=== PATIENT | male | born 1930 | race Caucasian/White ===

== ENCOUNTER 2017-04-01 05:21 | Emergency (ER) | payer OTHER ==
[~2017-04-01] VITALS: Ht 182.9 cm; Wt 90.7 kg
--- NOTE | ~2017-04-01 | EKG ---
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 : 1930 Requested By: Corbin Rene Order Number: [id number] MD: Hakeem Howell Measurements Intervals [place] Rate: 87 P: 33 AK: 244 QRS: -40 QRSD: 95 T: 52 QT: 366 QTc: 441 Interpretive Statements Sinus rhythm Prolonged AK interval Left anterior fascicular block Baseline wander in lead(s) V4 No previous ECG available for comparison Electronically Signed On 04-01-2017 10:54:05 CDT by Hakeem Howell [email or web address] <ELECTRONICALLY SIGNED> By: Hakeem Howell MD, [facility] 04/01/17 1054 0532 0532 Hakeem Howell MD, FACC /EPI
[~2017-04-01 05:21] MED LIST: FLOMAX PO; KEFLEX500 MG PO
[2017-04-01] MEDS ORDERED: [UNRECOGNIZED DRUG - OTHER] PO (05:28)
[2017-04-01 05:47] LABS: URINE BILIRUBIN NEGATIVE (Negative); URINE BLOOD TRACE (Negative); URINE COLOR YELLOW; URINE GLUCOSE-RANDOM* NEGATIVE (Negative); URINE KETONES TRACE (Negative); URINE LEUKOCYTES-REFLEX NEGATIVE (Negative); URINE PROTEIN (DIPSTICK) NEGATIVE (Negative); URINE SPECIFIC GRAVITY <= 1.005 (1.003-1.035); URINE UROBILINOGEN 0.2 E.U./dl (0.2-1.0)
[2017-04-01 05:48] LABS: ABSOLUTE NEUTROPHILS 5.7 thou/uL (1.4-8.2); EOSINOPHILS 1.5 % (0.0-3.0); HEMOGLOBIN 14.7 gm/dL (14.0-18.0); LYMPHOCYTES 13.3 % (24.0-44.0); MCH 32.5 pg (26.0-34.0); MCHC 33.5 g/dL (28.0-37.0); MCV 97.1 fL (80.0-100.0); MONOCYTES 9.5 % (1.0-8.0); PLATELET COUNT 163 thou/uL (150-400); POLYS 74.7 % (36.0-66.0); RBC 4.53 mil/uL (4.50-6.00); RDW 14.1 % (10.5-14.5); WBC 7.6 thou/uL (4.0-11.0)
[2017-04-01 05:52] LABS: MANUAL DIFF NO
[2017-04-01 06:00] LABS: ANION GAP 9 mmol/L (7-16); BUN 27 mg/dL (7-18); CALCIUM 9.1 mg/dL (8.5-10.1); CHLORIDE 103 mmol/L (98-107); CO2 28 mmol/L (21-32); CREATININE 1.4 mg/dL (0.7-1.3); GLUCOSE 103 mg/dL (74-106); POTASSIUM 3.9 mmol/L (3.5-5.1); SODIUM 140 mmol/L (136-145)
[2017-04-01 06:08] LABS: ALBUMIN 3.7 g/dL (3.4-5.0); ALKALINE PHOSPHATASE 47 U/L (46-116); MAGNESIUM 1.8 mg/dL (1.8-2.4); SGOT 19 U/L (15-37); SGPT 22 U/L (30-65); TOTAL BILIRUBIN 1.3 mg/dL (<0.1-1.0); TOTAL PROTEIN 6.7 g/dL (6.4-8.2); TROPONIN-I < 0.04 ng/mL (<0.04-0.07)
[2017-04-01 06:21] LABS: CK-MB MASS 2.4 ng/mL (<0.5-3.6)
[2017-04-01 06:51] VITALS: BP 129/72
== END 2017-04-01 06:20 | disposition home or self-care (01) ==
LOC: ER 05:21
PROVIDERS: Emergency Medicine
DX: E86.0 Dehydration (principal)

== ENCOUNTER → 2017-08-27 | Outpatient (CLI) | payer OTHER ==
[~2017-08-27] MED LIST changes: +ASPIR 8181 MG PO; +ATORVASTATIN CA80 MG PO; +AVODART0.5 MG PO; +BRILINTA90 MG PO; +FLOMAX0.4 MG PO; +TOPROL XL25 MG PO; +[UNRECOGNIZED DRUG - OTHER] PO
--- NOTE | ~2017-08-27 | 2DMMODE ---
[facility] [place] [address] 2 D/M-MODE ECHOCARDIOGRAM Name: AGUSTINA SUBRAMANIAN [facility] [id number] Admission: 08/27/17 Attend Phys: Kieran Clemens Discharge: Date of : [birth year]/17/[birth year] Date of Service: 08/27/17 1518 Report #: [id number] THIS REPORT FOR: //name// APPROVED REPORT Study performed: 08/27/2017 14:10:33 EXAM: Comprehensive 2D, Doppler, and color-flow Echocardiogram Patient Location: Out-Patient Room #: Echo lab Status: routine BSA: 2.18 HR: 64 bpm BP: 136/78 mmHg Other Information Study Quality: Adequate Indications Syncope 2D Dimensions RVDd: 35.42 mm LVEF(%): 68.81 (>50%) IVSd: 12.35 (7-11mm) LVOT Diam: 22.01 (18-24mm) LVDd: 37.71 mm PWd: 12.47 (7-11mm) Ascending Ao: 38.35 (22-36mm) LVDs: 23.43 (25-40mm) Aortic Root: 36.11 mm IVC: 18.00 mm Faria's LVEF: 68.81 % Volumes Left Atrial Volume (Systole) Single Plane 4CH: 43.73 mL Single Plane 2CH: 34.06 mL LA ESV Index: 21.00 mL/m2 Aortic Valve AoV Peak Bartolo.: 1.16 m/s AO Peak Gr.: 5.41 mmHg LVOT Max P.08 mmHg LVOT Max V: 0.88 m/s ROBERTA Vmax: 2.87 cm2 Mitral Valve E/A Ratio: 0.8 MV Decel. Time: 242.36 ms MV E Max Bartolo.: 0.80 m/s [facility] [place] [address] 2 D/M-MODE ECHOCARDIOGRAM Name: AGUSTINA SUBRAMANIAN Room #: [facility] Ulloa#: [id number] Admission: 08/27/17 Attend Phys: Kieran Clemens Discharge: Date of : [birth year] Date of Service: 08/27/17 1518 Report #: [id number] MV A Bartolo.: 0.97 m/s MV PHT: 70.28 ms IVRT: 161.48 ms Pulmonary Valve PV Peak Bartolo.: 0.82 m/s PV Peak Gr.: 2.70 mmHg IL End Vmax: 1.28 m/s Pulmonary Vein P Vein S: 0.63 m/s P Vein A: 0.22 m/s P Vein D: 0.39 m/s P Vein A Dur.: 115.3 msec P Vein S/D Ratio: 1.62 Tricuspid Valve TR Peak Bartolo.: 2.51 m/s TR Peak Gr.: 25.16 mmHg PA Pressure: 30.00 mmHg Left Ventricle The left ventricle is normal size. There is normal left ventricular wall thickness. The left ventricular systolic function is normal. The left ventricular ejection fraction is within the normal range. LVEF is 60-65%. Grade I - abnormal relaxation pattern. Right Ventricle The right ventricle is normal size. The right ventricular systolic function is normal. Atria The left atrium size is normal. The right atrium size is normal. Aortic Valve The aortic valve is normal in structure. Aortic valve is calcified. No aortic regurgitation is present. There is no aortic valvular stenosis. Mitral Valve The mitral valve is normal in structure. Trace to mild mitral regurgitation. Tricuspid Valve The tricuspid valve is normal in structure. There is mild tricuspid regurgitation. Estimated PAP 30 mmHg. There is no pulmonary hypertension. [address] [address] 2 D/M-MODE ECHOCARDIOGRAM Name: AGUSTINA SUBRAMANIAN Room #: REG CL Artemio#: [id number] Admission: 08/27/17 Attend Phys: Kieran [facility] northnnjohnathan Discharge: Date of : 11/17/29 Date of Service: 08/27/17 1518 Report #: [id number] Pulmonic Valve The pulmonary valve is normal in structure. Trace pulmonic regurgitation. Great Vessels Aortic root is mildly dilated. The ascending aorta is mildly dilated. IVC is normal in size and collapses >50% with inspiration. Pericardium There is no pericardial effusion. <Conclusion> The left ventricle is normal size. LVEF is 60-65%. Grade I - abnormal relaxation pattern. The right ventricle is normal size. The left atrium size is normal. The aortic valve is normal in structure. Aortic valve is calcified. Trace to mild mitral regurgitation. There is mild tricuspid regurgitation. Estimated PAP 30 mmHg. There is no pulmonary hypertension. Aortic root is mildly dilated. There is no pericardial effusion. <ELECTRONICALLY SIGNED> By: Cooper Calvo MD, FACC 08/27/17 1518 1518 1518 Cooper Calvo MD, FACC /INF
== END ==
LOC: CV 09:04
DX: I08.1 Rheumatic disorders of both mitral and tricuspid valves (principal); I70.0 Atherosclerosis of aorta

== ENCOUNTER → 2017-08-29 | Outpatient (CLI) | payer OTHER ==
[2017-08-29 09:02] LABS: CREATININE 1.2 mg/dL (0.7-1.3)
== END ==
LOC: CAT 08:23
PROVIDERS: Internal Medicine
DX: I72.8 Aneurysm of other specified arteries (principal); R30.9 Painful micturition, unspecified; J98.4 Other disorders of lung; M47.895 Other spondylosis, thoracolumbar region; M16.4 Bilateral post-traumatic osteoarthritis of hip; M53.3 Sacrococcygeal disorders, not elsewhere classified; N28.1 Cyst of kidney, acquired; N20.0 Calculus of kidney; N40.0 Benign prostatic hyperplasia without lower urinary tract symptoms; N32.89 Other specified disorders of bladder; N32.3 Diverticulum of bladder; N21.0 Calculus in bladder; K57.30 Diverticulosis of large intestine without perforation or abscess without bleeding

== ENCOUNTER 2018-03-24 23:30 | Emergency (ER) | payer OTHER ==
[~2018-03-24] VITALS: Ht 182.9 cm; Wt 90.7 kg
== END 2018-03-25 00:29 | disposition home or self-care (01) ==
LOC: ER 23:30
DX: S70.11XA Contusion of right thigh, initial encounter (principal); N40.0 Benign prostatic hyperplasia without lower urinary tract symptoms; Z95.5 Presence of coronary angioplasty implant and graft; X58.XXXA Exposure to other specified factors, initial encounter; Y92.89 Other specified places as the place of occurrence of the external cause; Y93.89 Activity, other specified; Y99.8 Other external cause status

== ENCOUNTER 2018-04-02 09:25 | Observation (INO) | payer OTHER ==
[~2018-04-02] VITALS: Ht 182.9 cm; Wt 92.5 kg
[2018-04-02] VITALS (12 sets, daily range): BP systolic 121–149; BP diastolic 77–99
--- NOTE | ~2018-04-02 | D ---
[facility] [place] [address] DISCHARGE SUMMARY Name: AGUSTINA SUBRAMANIAN Room #: 201-P [facility] Shiv Ulloa#: [id number] Admission: 04/02/18 Attend Phys: Niels Gonzales MD Discharge: 04/03/18 Date of : [birth year] Report #: [id number] THIS REPORT FOR: //name// CC: Dieudonne Alcaraz [facility] DATE OF SERVICE: 04/03/2018 FINAL DIAGNOSES: 1. Unstable angina, status post coronary angioplasty. 2. Recent inferior wall myocardial infarction. 3. Orthostatic hypotension. 4. Paroxysmal supraventricular tachycardia. 5. Benign prostatic hypertrophy. HOSPITAL COURSE: Please see the original H and P for full details. The patient presents with his anginal equivalent, lightheadedness and weakness with exertion. He initially presented with these symptoms and was diagnosed with an acute inferior wall AL, undergoing stent placement. Even after his angioplasty procedure, he had recurrent symptoms and presented for an elective staged angioplasty procedure involving the LAD. The LAD has a superior occlusion in the mid segment. He underwent placement of 2 overlapping drug-eluting stents into the mid LAD segment. He has remained hemodynamically stable overnight. He denies any episodes of lightheadedness or weakness. He is instructed to continue with the combination of aspirin and Brilinta. FINAL DISPOSITION: He will continue with Avodart, Toprol-XL 25 mg daily, Flomax, Brilinta 90 mg b.i.d., Lipitor 40 mg and aspirin 81 mg. He is given followup appointment in the office. <ELECTRONICALLY SIGNED> By: Niels Gonzales MD 04/06/18 08 08 09 Niels Gonzales MD /nt
--- NOTE | ~2018-04-02 | EKG ---
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 04/03/18 0858 5 5 Hakeem Howell MD, [facility] /EPI
--- NOTE | ~2018-04-02 | EKG ---
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 CARRASCO : 1930 Requested By: Niels Gonzales Order Number: [id number] MD: Hakeem Howell Measurements Intervals [place] Rate: 62 P: -31 IA: 277 QRS: -48 QRSD: 100 T: -16 QT: 407 QTc: 414 Interpretive Statements Sinus rhythm Atrial premature complex Prolonged IA interval Left anterior fascicular block Borderline T abnormalities, inferior leads Compared to ECG 03/22/2018 07:50:34 Atrial premature complex(es) now present Electronically Signed On 04-03-2018 8:51:27 CDT by Hakeem Howell [email or web address] <ELECTRONICALLY SIGNED> By: Hakeem Howell MD, [facility] 04/03/18 0851 1619 1619 Hakeem Howell MD, [facility] /EPI
--- NOTE | ~2018-04-02 | CATHLAB ---
[facility] [place] [address] INVASIVE PROCEDURE REPORT Name: AGUSTINA SUBRAMANIAN Room #: 201-P ADM IN ..#: [id number] Admission: 04/02/18 Attend Phys: Niels Gonzales MD Discharge: Date of : [birth year] Date of Service: 04/02/18 1656 Report #: [id number] THIS REPORT FOR: //name// APPROVED REPORT Study performed: 04/02/2018 10:17:16 Patient Details Patient Status: Out-Patient Room #: The patient is a 87 year-old male Event Personnel Niels Gonzales Emu Farm Worker, Maik Gomes RN, Shena Churchill [place], Nancy RTR, MILLING/POLISHING OPERATOR Monitor, Nadeen Crowe Monitor Procedures Performed Art Access - L radial artery Art Access - L femoral artery* Coronary Angiography Only 3069199 CORANG CLEMENT Place w/wo Plasty Single LAD 306848 Hemostasis w/ Mynx Hemostasis with Hemoband 15345 Initial Mod Sed Same Phys/QHP Gr5y 886644 95704 Mod Sed Same Phys/QHP Ea 992071 Indication Dizziness and vertigo, Chest pain, Anginal equivalent is lightheadedness and weakness with exertion. Risk Factors Hypercholesterolemia, Coronary Artery DiseaseHypertension Previous Procedures/Diagnoses Previous PCI, Previous NH Procedure Narrative The patient was brought electively to the Cardiac Catheterization Laboratory and was prepped and draped in a sterile manner. The left femoral was infiltrated with 1% Lidocaine subcutaneous anesthesia. A PINNACLE 6FR Sheath #[id number] sheath was inserted into the LFA. Coronary angiography was performed using coronary diagnostic catheters. The right coronary system was accessed and visualized with a 5FR JR 4 #[id number] catheter. The left coronary system was accessed and visualized with a VISTA 6FR JL4 #[id number] catheter. Pre-demployment femoral angiogram was performed . Closure device was deployed with a 6 Fr MYNXGRIP 6/7F #[id number]. The patient tolerated the procedure well and there were no complications associated with the procedure. There was no hematoma. [address] [address] INVASIVE PROCEDURE REPORT Name: AGUSTINA SUBRAMANIAN CYNDY Room #: 201-P [facility]#: [id number] Admission: 04/02/18 Attend Phys: Niels Gonzales MD Discharge: Date of : [birth year]/17/[birth year] Date of Service: 04/02/18 1656 Report #: [id number] Intraoperative Conscious Sedation Sedation start time: 12:01 Case end Time: 13:30 Versed 2 mg Fluoro Time: 16.46 minutes Dose: DAP 94306.10 cGycm2 1920 mGy Contrast Type and Amount: 180ML VISI Coronary Angiography The patient's coronary anatomy is right dominant. Diagnostic Cath LAD There is severe diffuse disease in the midsegment of the LAD. Hemodynamics The aortic pressure is 79/49 mmHg with a mean of 63 mmHg. PCI Technique Lesion Anticoagulation was achieved with Angiomax. Patient was preloaded with Brillinta. Percutaneous coronary intervention was performed on the mid left anterior descending artery segment. The lesion stenosis prior to intervention was 90% with AURORA 3 flow. A VISTA 6FR JL4 #[id number] Guide Catheter was used to engage the LCA ostium. A Luge Wire .014 x 182CM #[id number] Interventional Guidewire was used to cross the lesion. BALLOON DILATION A Balloon catheter Euphora RX 2.0 x 20 #[id number] was inserted and inflated up to 16.00atm for 26seconds. Additional Inflation: 16.00atm for 12seconds. Additional Inflation: 10.00atm for 16seconds. STENT DEPLOYMENT A drug-eluting stent RESOLUTE HANNA RX 2.0 X 22 # was inserted and inflated up to 14.00atm for 29seconds. 2.75X14 RESOLUTE STENT DEPLOYED PROX. TO THE HANNA STENT @9ATM FOR 20 SEC., POST DILATED WITH RESOLUTE STENT DELIVERY SYSTEM @8ATM FOR 10 SEC. POST STENT DEPLOYMENT BALLOON DILATION A Balloon catheter Euphora NC RX 2.5 x 15 #[id number] was inserted and inflated up to 16.00atm for 19seconds. Additional Inflation: 18.00atm for 20seconds. 2.75X12 EUPHORA NC to post dilate 2.75 Resolute@14atm for 33 secs. additional inflations 12 dru for 20 secs. a 2.75x15 Euphora NC used to post dilate 2.75 Resolute 16 rdu for 14 [address] [place] [address] INVASIVE PROCEDURE REPORT Name: AGUSTINA SUBRAMANIAN Room #: 201-P [facility] M.R.#: [id number] Admission: 04/02/18 Attend Phys: Niels Gonzales MD Discharge: Date of : [birth year] Date of Service: 04/02/181655 Report #: [id number] secs. Final angiography reveals 5 % stenosis with AURORA 3 flow. Conclusion 1. Successful insertion of 2 drug-eluting stents into the mid LAD stenotic area. 2. Patent stents in the RCA. 3. Recommend dual antiplatelet therapy. <ELECTRONICALLY SIGNED> By: Niels Gonzales MD 04/02/181655 55 55 Niels Gonzales MD /INF
[2018-04-02 10:50] LABS: HEMATOCRIT 39.9 % (42.0-52.0); HEMOGLOBIN 13.8 gm/dL (14.0-18.0); MCH 32.9 pg (26.0-34.0); MCHC 34.5 g/dL (28.0-37.0); MCV 95.3 fL (80.0-100.0); RBC 4.19 mil/uL (4.50-6.00); RDW 13.4 % (10.5-14.5); WBC 6.7 thou/uL (4.0-11.0)
[2018-04-02 10:57] LABS: CALCIUM 9.1 mg/dL (8.5-10.1); CREATININE 1.3 mg/dL (0.7-1.3); POTASSIUM 3.8 mmol/L (3.5-5.1)
[2018-04-03 04:15] VITALS: BP 98/53
[2018-04-03 06:07] LABS: HEMATOCRIT 39.9 % (42.0-52.0); HEMOGLOBIN 13.9 gm/dL (14.0-18.0); MCH 32.9 pg (26.0-34.0); MCHC 34.8 g/dL (28.0-37.0); MCV 94.7 fL (80.0-100.0); RBC 4.21 mil/uL (4.50-6.00); RDW 13.2 % (10.5-14.5); WBC 7.6 thou/uL (4.0-11.0)
[2018-04-03 06:27] LABS: CALCIUM 8.8 mg/dL (8.5-10.1); CREATININE 1.1 mg/dL (0.7-1.3); POTASSIUM 4.2 mmol/L (3.5-5.1); TOTAL BILIRUBIN 0.9 mg/dL (<0.1-1.0); TOTAL PROTEIN 5.8 g/dL (6.4-8.2); TROPONIN-I 0.17 ng/mL (<0.06)
[2018-04-03 07:19] VITALS: BP 84/49
[2018-04-03 09:28] VITALS: BP 84/49
== END 2018-04-03 11:42 | disposition home or self-care (01) ==
LOC: CATH 09:25 → 2N 13:53 → ENTRNSPT 04-03 11:31 → EDTRNSPTSTS 04-03 11:35 → 2N 04-03 11:42
PROVIDERS: Internal Medicine Cardiovascular Disease
DX: I20.0 Unstable angina (principal); I21.19 ST elevation (STEMI) myocardial infarction involving other coronary artery of inferior wall; I95.1 Orthostatic hypotension; I47.1 Supraventricular tachycardia; N40.0 Benign prostatic hyperplasia without lower urinary tract symptoms; K21.9 Gastro-esophageal reflux disease without esophagitis; M17.10 Unilateral primary osteoarthritis, unspecified knee

== ENCOUNTER → 2018-04-06 | Outpatient (CLI) | payer OTHER | LOC: ULTRA 12:04 | DX: R10.32 Left lower quadrant pain (principal); R19.04 Left lower quadrant abdominal swelling, mass and lump; N40.1 Benign prostatic hyperplasia with lower urinary tract symptoms; Z95.5 Presence of coronary angioplasty implant and graft ==